=== PATIENT | male | born 1970 | race Caucasian/White ===

== ENCOUNTER 2018-12-25 07:43 | Emergency (ER) | payer MEDICAID ==
[~2018-12-25] VITALS: Wt 90.0 kg
[~2018-12-25 07:43] MED LIST: AMLO-147 PO; ASPI-831 PO; ASPI325T30 PO; CARV12.579 NGT; CLOP75TA28 PO; NAPR-985 PO
[2018-12-25 07:48] VITALS: BP 140/89; PULSE 90; RESP 18
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
== END 2018-12-25 10:04 | disposition left against medical advice (07) ==
LOC: FTE 07:43
DX: I10 Essential (primary) hypertension (principal); I25.10 Atherosclerotic heart disease of native coronary artery without angina pectoris; F17.210 Nicotine dependence, cigarettes, uncomplicated; Z79.01 Long term (current) use of anticoagulants; Z79.82 Long term (current) use of aspirin; Z98.61 Coronary angioplasty status
CPT/HCPCS: 36415; 71045; 80053; 84484; 85025; 93005; Z7502

== ENCOUNTER 2018-12-25 11:39 | Emergency (ER) | payer MEDICAID ==
[~2018-12-25] VITALS: Ht 172.7 cm; Wt 75.0 kg
[2018-12-25 12:13] VITALS: Ht 172.7 cm; Wt 75.0 kg
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
[2018-12-25] MEDS ORDERED: ASPIRIN 325 MG TAB PO ONE (13:30)
[2018-12-25 13:36] VITALS: BP 129/78; PULSE 76; RESP 18
== END 2018-12-25 13:44 | disposition home or self-care (01) ==
LOC: E/R 11:39
DX: R07.9 Chest pain, unspecified (principal); R40.2142 Coma scale, eyes open, spontaneous, at arrival to emergency department; R40.2252 Coma scale, best verbal response, oriented, at arrival to emergency department; R40.2362 Coma scale, best motor response, obeys commands, at arrival to emergency department; I10 Essential (primary) hypertension; I25.10 Atherosclerotic heart disease of native coronary artery without angina pectoris; F17.210 Nicotine dependence, cigarettes, uncomplicated; Z98.61 Coronary angioplasty status; Z79.82 Long term (current) use of aspirin
CPT/HCPCS: 36415; 71045; 80048; 80307; 82962; 84484; 85025; 93005; Z7502; Z7610